=== PATIENT | female | born 1970 | race Caucasian/White ===

== ENCOUNTER 2018-02-25 21:31 | Emergency (ER) | payer OTHER, SELFPAY ==
--- NOTE | 2018-02-25 21:50 | RAD ---
SINGLE VIEW OF THE CHEST: 02/25/18 COMPARISON: 05/12/15 HISTORY: Right arm pain that radiates up to the jaw and chest pain. FINDINGS: Single view of the chest shows a normal sized cardiomediastinal silhouette. There is no evidence of c onsolidation, mass, or pleural effusion. The bones are unremarkable. IMPRESSION: No evidence of acute cardiopulmonary disease. POS: [facility]
[2018-02-25 22:04] LABS: #Basophils 0.1 thou/uL (0.0-0.2); #Eosinphils 1.4 thou/uL (0.0-0.7); #Lymphocytes 3.4 thou/uL (1.20-3.40); #Monocytes 0.8 thou/uL (0.11-0.59); #Neutrophils 4.3 thou/uL (1.40-6.50); %Eosinophils 14.3 % (0.0-10.0); %Lymphocytes 34.1 % (21.0-51.0); %Monocytes 7.5 % (0.0-10.0); %Neutrophils 43.1 % (42.0-75.0); Hemoglobin 12.8 g/dL (12.0-16.0); Mean Corpuscular Hemoglobin 30.3 pg (27.0-31.0); Mean Corpuscular Volume 89.2 fL (78.0-98.0); Mean Platelet Volume 7.5 fL (7.4-10.4); Platelet Count 319 thou/uL (130-400); RBC Distribution Width 12.5 % (11.5-14.5); Red Blood Cell (RBC) Count 4.23 mill/uL (4.20-5.40)
[2018-02-25 22:25] LABS: ALT (SGPT) 34 U/L (8-55); AST (SGOT) 26 U/L (5-34); Albumin 3.8 g/dL (3.5-5.0); Alkaline Phosphatase 128 U/L (40-150); Anion Gap 11 mmol/L (10-20); BUN (Urea Nitrogen) 10 mg/dL (7.0-18.7); Bilirubin, Total 0.2 mg/dL (0.2-1.2); Calc. Creatinine Clearance 0 mL/min (70-130); Carbon Dioxide 26 mmol/L (22-29); Chloride 101 mmol/L (98-107); Estimated GFR-MDRD 90; Globulin 3.5 g/dL (2.4-3.5); Glucose 204 mg/dL (70-105); Protein, Total 7.3 g/dL (6.0-8.3); Sodium 134 mmol/L (136-145)
[2018-02-25 22:29] LABS: CKMB 2.4 ng/mL (0-6.6); Troponin I Less than 0.010 ng/mL (< 0.028)
[2018-02-25] MEDS ORDERED: Nitroglycerin 2% Ointment 1 INCH/1 GM Packet ONE (22:42)
--- NOTE | 2018-02-25 23:39 | RAD ---
THREE VIEWS OF THE LEFT SHOULDER: 02/25/18 COMPARISON: None. HISTORY: Left shoulder pain. FINDINGS: Three views of the left shoulder shows no evidence of acute fracture or dislocation. No soft tissue s welling is seen. The visualized left thorax is unremarkable. IMPRESSION: Unremarkable exam. POS: [facility]
[2018-02-25 23:46] LABS: Troponin I Less than 0.010 ng/mL (< 0.028)
--- NOTE | 2018-03-06 11:57 | EKG ---
Test Reason : Blood Pressure : / mmHG Vent. Rate : 084 BPM Atrial Rate : 084 BPM P-R Int : 182 ms QRS Dur : 080 ms QT Int : 352 ms P-R-T Axes : 029 035 025 degrees QTc Int : 415 ms Normal sinus rhythm Possible Anterior infarct , age undetermined Abnormal ECG Confirmed by ZEFERINO MANZANO, ROMIE Young ([id number]), international editorial producer BOBBY SPARKS ([id number]) on 03/06/2018 11:57:23 AM Referred By: Confirmed By:ROMIE MCGARRY MD
== END 2018-02-26 00:17 | disposition home or self-care (01) ==
LOC: ERS 21:31
DX: M25.512 Pain in left shoulder (principal); E03.9 Hypothyroidism, unspecified; J44.9 Chronic obstructive pulmonary disease, unspecified; E11.9 Type 2 diabetes mellitus without complications; I10 Essential (primary) hypertension; F32.9 Major depressive disorder, single episode, unspecified; F17.210 Nicotine dependence, cigarettes, uncomplicated; Z79.899 Other long term (current) drug therapy; Z79.82 Long term (current) use of aspirin; Z79.84 Long term (current) use of oral hypoglycemic drugs
CPT/HCPCS: 36415; 71045; 80053; 82553; 83880; 84484; 85025; 85379; 93005

== ENCOUNTER 2018-09-29 15:43 | Emergency (ER) | payer SELFPAY ==
--- NOTE | 2018-09-29 16:13 | RAD ---
PORTABLE CHEST ONE VIEW: 09/29/2018 5:00 p.m. HISTORY: Chest pain. Dizziness. COMPARISON: 02/25/2018 FINDINGS: The heart size is normal. The lungs are expanded without focal areas of consolidation, pneumothorax, or pleural effusions. IMPRESSION: No radiographic evidence of acute cardiopulmonary process. POS: [facility]
[2018-09-29 16:16] LABS: #Basophils 0.1 thou/uL (0.0-0.2); #Eosinphils 0.5 thou/uL (0.0-0.7); #Lymphocytes 3.1 thou/uL (1.20-3.40); #Monocytes 0.7 thou/uL (0.11-0.59); #Neutrophils 3.2 thou/uL (1.40-6.50); %Basophils 1.3 % (0.0-1.0); %Eosinophils 6.5 % (0.0-10.0); %Lymphocytes 41.3 % (21.0-51.0); %Monocytes 8.6 % (0.0-10.0); %Neutrophils 42.3 % (42.0-75.0); Hemoglobin 12.9 g/dL (12.0-16.0); Mean Corpuscular HGB CONC 33.3 g/dL (32.0-36.0); Mean Corpuscular Hemoglobin 30.7 pg (27.0-31.0); Mean Corpuscular Volume 92.2 fL (78.0-98.0); Mean Platelet Volume 6.9 fL (7.4-10.4); Platelet Count 300 thou/uL (130-400); RBC Distribution Width 11.7 % (11.5-14.5); White Blood Cell (WBC) Count 7.6 thou/uL (4.8-10.8)
[2018-09-29 16:41] LABS: ALT (SGPT) 31 U/L (8-55); AST (SGOT) 23 U/L (5-34); Albumin 3.8 g/dL (3.5-5.0); Alkaline Phosphatase 111 U/L (40-150); Anion Gap 12 mmol/L (10-20); BUN (Urea Nitrogen) 14 mg/dL (7.0-18.7); Bilirubin, Total 0.2 mg/dL (0.2-1.2); Calc. Creatinine Clearance 0 mL/min (70-130); Calcium 9.3 mg/dL (7.8-10.44); Carbon Dioxide 28 mmol/L (22-29); Chloride 99 mmol/L (98-107); Estimated GFR-MDRD 76; Globulin 3.2 g/dL (2.4-3.5); Glucose 289 mg/dL (70-105); Lipase 36 U/L (8-78); Potassium 4.3 mmol/L (3.5-5.1); Sodium 135 mmol/L (136-145)
[2018-09-29] MEDS ORDERED: Mag-Al 1200 mg/1200 mg/30 ML UDCUP ONE (17:05)
[2018-09-29] MEDS ORDERED: Lidocaine Viscous Sol 2% 15 ml UD Cup ONE (17:05)
== END 2018-09-29 18:12 | disposition home or self-care (01) ==
LOC: ERS 15:43
DX: R10.13 Epigastric pain (principal); R11.2 Nausea with vomiting, unspecified; E03.9 Hypothyroidism, unspecified; J44.9 Chronic obstructive pulmonary disease, unspecified; I45.6 Pre-excitation syndrome; E11.9 Type 2 diabetes mellitus without complications; I10 Essential (primary) hypertension; F32.9 Major depressive disorder, single episode, unspecified; F17.210 Nicotine dependence, cigarettes, uncomplicated; Z79.899 Other long term (current) drug therapy; Z79.84 Long term (current) use of oral hypoglycemic drugs; Z79.82 Long term (current) use of aspirin; Z79.51 Long term (current) use of inhaled steroids
CPT/HCPCS: 36415; 71045; 80053; 83690; 84484; 85025; 93005

== ENCOUNTER 2019-02-12 11:24 | Emergency (ER) | payer SELFPAY ==
--- NOTE | 2019-02-12 12:07 | RAD ---
RIGHT FOOT 3 VIEWS: Date: 02/12/19 COMPARISON: None. HISTORY: Right foot pain. FINDINGS: There is enthesophyte formation at the origin of the plantar aponeurosis. There is mild degenerative change at the first metatarsophalangeal joint. There is no displaced fracture or evidence of dislocat ion seen. IMPRESSION: No acute osseous abnormality. POS: [facility]
== END 2019-02-12 13:08 | disposition home or self-care (01) ==
LOC: ERS 11:24
DX: S93.401A Sprain of unspecified ligament of right ankle, initial encounter (principal); E03.9 Hypothyroidism, unspecified; J44.9 Chronic obstructive pulmonary disease, unspecified; I49.9 Cardiac arrhythmia, unspecified; I45.6 Pre-excitation syndrome; I10 Essential (primary) hypertension; F32.9 Major depressive disorder, single episode, unspecified; F17.210 Nicotine dependence, cigarettes, uncomplicated; Z79.51 Long term (current) use of inhaled steroids; Z79.82 Long term (current) use of aspirin; Z79.84 Long term (current) use of oral hypoglycemic drugs; W23.0XXA Caught, crushed, jammed, or pinched between moving objects, initial encounter

== ENCOUNTER 2021-03-08 14:57 | Outpatient (CLI) | payer MEDICAID | END 2021-03-08 14:58 | disposition home or self-care (01) | LOC: BICRAD 14:57 | PROVIDERS: ATTEND Family Medicine | DX: R06.02 Shortness of breath (principal); J18.9 Pneumonia, unspecified organism | CPT/HCPCS: 71045 ==

== ENCOUNTER 2021-10-08 12:31 | Outpatient (CLI) | payer OTHER ==
[2021-10-08 13:42] LABS: #Basophils 0.1 10x3/uL (0.0-0.2); #Eosinphils 0.6 10x3/uL (0.0-0.5); %Basophils 0.7 % (0.0-2.0); %Eosinophils 6.5 % (0.0-6.0); %Monocytes 10.3 % (0.0-10.0); %Neutrophils 52.1 % (40.0-75.0); Hemoglobin 11.4 g/dL (12.0-15.5); Mean Corpuscular HGB CONC 32.3 g/dL (32.0-36.0); Mean Corpuscular Hemoglobin 29.2 pg (27.0-33.0); Mean Corpuscular Volume 90.5 fl (81.6-98.3); Mean Platelet Volume 10.1 fl (7.4-10.4); Platelet Count 269 10x3/uL (150-450); RBC Distribution Width 13.7 % (11.5-14.5); White Blood Cell (WBC) Count 9.6 10x3/uL (3.5-10.5)
[2021-10-08 13:55] LABS: ALT (SGPT) 54 U/L (8-55); AST (SGOT) 38 U/L (5-34); Albumin 3.8 g/dL (3.5-5.0); Alkaline Phosphatase 104 U/L (40-110); Anion Gap 12 mmol/L (10-20); BUN (Urea Nitrogen) 14 mg/dL (7.0-18.7); Bilirubin, Total 0.2 mg/dL (0.2-1.2); Calc. Creatinine Clearance 0 mL/min (70-130); Calcium 9.4 mg/dL (7.8-10.44); Carbon Dioxide 26 mmol/L (22-29); Chloride 103 mmol/L (98-107); Globulin 3.1 g/dL (2.4-3.5); Glucose 219 mg/dL (70-105); Potassium 4.9 mmol/L (3.5-5.1); Protein, Total 6.9 g/dL (6.0-8.3); Sodium 136 mmol/L (136-145)
[2021-10-09 00:24] LABS: SARS-CoV-2 PCR by NAA Not Detected (NotDetected)
== END 2021-10-08 12:32 | disposition home or self-care (01) ==
LOC: LABBT 12:31
PROVIDERS: ATTEND Internal Medicine Cardiovascular Disease
DX: Z01.812 Encounter for preprocedural laboratory examination (principal); Z20.822 Contact with and (suspected) exposure to COVID-19
CPT/HCPCS: 80053; 85025; U0003; U0005

== ENCOUNTER 2021-10-11 06:02 | Day surgery (SDC) | payer OTHER ==
[2021-10-09 11:31] VITALS: BMI 29.9
[2021-10-11] MEDS ORDERED: Lidocaine 1% (PF) 30 ML VIAL ONE (06:33)
[2021-10-11] MEDS ORDERED: Verapamil 5 MG/2 ML VIAL ONE (06:45)
[2021-10-11] MEDS ORDERED: Nitroglycerin 100MG/250ML BOT 250 ML ONE (06:45)
[2021-10-11] MEDS ORDERED: Heparin 10,000 UNITS/ 10 ML VIAL ONE (06:45)
[2021-10-11] MEDS ORDERED: Midazolam HCl 2 mg/2 ml Vial ONE (07:14)
[2021-10-11] MEDS ORDERED: Iopamidol 370 76% 100 ML VIAL ONE (13:58)
== END 2021-10-11 10:40 | disposition home or self-care (01) ==
LOC: CCL 06:02
PROVIDERS: ATTEND Internal Medicine Cardiovascular Disease
PROC: 4A023N7 Measurement of Cardiac Sampling and Pressure, Left Heart, Percutaneous Approach (ICD-10-PCS; principal; 2021-10-11)
PROC: B2111ZZ Fluoroscopy of Multiple Coronary Arteries using Low Osmolar Contrast (ICD-10-PCS; principal; 2021-10-11)
DX: R06.02 Shortness of breath (principal); R94.39 Abnormal result of other cardiovascular function study; I25.10 Atherosclerotic heart disease of native coronary artery without angina pectoris; E03.9 Hypothyroidism, unspecified; E11.9 Type 2 diabetes mellitus without complications; I10 Essential (primary) hypertension; E78.2 Mixed hyperlipidemia; J44.9 Chronic obstructive pulmonary disease, unspecified; F17.210 Nicotine dependence, cigarettes, uncomplicated; I45.6 Pre-excitation syndrome; Z79.4 Long term (current) use of insulin; Z79.82 Long term (current) use of aspirin; Z79.84 Long term (current) use of oral hypoglycemic drugs; Z79.890 Hormone replacement therapy; Z79.899 Other long term (current) drug therapy; Z88.5 Allergy status to narcotic agent
CPT/HCPCS: 36416; 93458; J1644; J2001; J2250; Q9967

== ENCOUNTER 2022-06-23 02:11 | Inpatient (IN) | payer OTHER ==
[2022-06-23] MEDS ORDERED: NOREPINEPHRINE 8 MG/250 ML-D5W 250 ML ONE ×2 (02:37→19:48)
[2022-06-23] MEDS ORDERED: methylPREDNISolone Sod Succ/PF 125 MG/2 ML VIAL ONE (02:37)
[2022-06-23 02:39] LABS: #Basophils 0.1 thou/uL (0.0-0.2); #Eosinphils 0.4 thou/uL (0.0-0.7); #Lymphocytes 5.4 thou/uL (1.20-3.40); #Monocytes 0.4 thou/uL (0.11-0.59); #Neutrophils 7.7 thou/uL (1.40-6.50); %Basophils 0.4 % (0.0-1.0); %Eosinophils 2.6 % (0.0-10.0); %Monocytes 2.8 % (0.0-10.0); %Neutrophils 55.1 % (42.0-75.0); Hemoglobin 15.5 g/dL (12.0-16.0); Mean Corpuscular HGB CONC 33.8 g/dL (32.0-36.0); Mean Corpuscular Hemoglobin 31.3 pg (27.0-31.0); Mean Corpuscular Volume 92.6 fl (78.0-98.0); Mean Platelet Volume 7.6 fL (7.4-10.4); Platelet Count 145 10x3/uL (130-400); RBC Distribution Width 11.8 % (11.5-14.5); Red Blood Cell (RBC) Count 4.96 mill/uL (4.20-5.40); White Blood Cell (WBC) Count 13.9 10x3/uL (4.8-10.8)
[2022-06-23 03:03] LABS: Albumin 4.1 g/dL (3.5-5.0); Anion Gap 17 mmol/L (10-20); BUN (Urea Nitrogen) 27 mg/dL (7.0-18.7); Bilirubin, Total 0.4 mg/dL (0.2-1.2); Calc. Creatinine Clearance 0 mL/min (70-130); Carbon Dioxide 23 mmol/L (22-29); Chloride 98 mmol/L (98-107); Estimated GFR 59; Glucose 236 mg/dL (70-105); Potassium 3.6 mmol/L (3.5-5.1); Protein, Total 7.9 g/dL (6.0-8.3); Sodium 134 mmol/L (136-145)
[2022-06-23 03:04] LABS: ALT (SGPT) 40 U/L (8-55); AST (SGOT) 37 U/L (5-34); Alkaline Phosphatase 115 U/L (40-110); Globulin 3.8 g/dL (2.4-3.5); Lipase 117 U/L (8-78)
[2022-06-23] MEDS ORDERED: Ondansetron PF 4 MG/2 ML Vial ONE (03:08)
[2022-06-23] MEDS ORDERED: Piperacillin/Tazobactam 3.375 GM VIAL ONE (03:08)
[2022-06-23] MEDS ORDERED: Fentanyl 100 MCG/2 ML VIAL ONE (03:49)
[2022-06-23 04:13] LABS: Bilirubin Negative (Negative); Blood, Urine Negative (Negative); Clarity Clear (Clear); Glucose, Urine (Dipstick) 30 mg/dL (Negative); Ketone, Urine Negative (Negative); Leukocyte Negative Leu/uL (Negative); Nitrite Negative (Negative); Protein, Urine (Dipstick) 70 mg/dL (Neg-Trace); RBC/HPF 0-3 HPF (0-3); Specific Gravity, Urine 1.018 (1.002-1.036); Squamous Epithelial 0-3 HPF (0-3); WBC/HPF 0-3 HPF (0-3); pH, Urine 6.5 (5.0-9.0)
[2022-06-23] MEDS ORDERED: LORazepam 2 MG/ML SYR.(CARPUJECT) ONE (05:01)
[2022-06-23 05:45] LABS: Lactic Acid 4.1 mmol/L (0.5-2.2)
[2022-06-23] MEDS ORDERED: Acetaminophen 325 MG TAB PO PRN (05:57)
[2022-06-23] MEDS ORDERED: Calcium Carbonate 500 MG ChewTAB PO PRN (05:57)
[2022-06-23] MEDS ORDERED: Senokot S 8.6-50 MG TAB PO PRN (05:57)
[2022-06-23] MEDS ORDERED: Dextrose 5% in Water 1,000 ML IV PRN (05:58)
[2022-06-23] MEDS ORDERED: Dextrose 50% Abboject 50 ML SYRINGE SLOW IVP PRN (05:58)
[2022-06-23] MEDS ORDERED: NOREPINEPHRINE 8 MG/250 ML-D5W 250 ML IVPB SCH (06:00)
[2022-06-23 07:25] LABS: Magnesium 2.3 mg/dL (1.6-2.6); Phosphorus 5.2 mg/dL (2.3-4.7)
[2022-06-23 07:52] LABS: SARS-CoV-2 NAA Rapid Test DETECTED (NotDetected)
[2022-06-23] MEDS ORDERED: Iopamidol-370 76% 500 ML 1 ML ONE (08:41)
[2022-06-23] MEDS: Sodium Chloride 0.9% 1,000 ML IV SCH ×3 (09:06→21:28)
[2022-06-23 09:45] LABS: Lactic Acid 1.4 mmol/L (0.5-2.2)
[2022-06-23] MEDS: Piperacillin/Tazobactam 3.375 GM in Sodium Chloride 0.9% 100 ML IVPB SCH ×2 (09:45→15:43)
[2022-06-23] MEDS: Buprenorphine 8mg/Naloxone 2mg per 1 FILM SL SCH ×3 (10:16→20:17)
[2022-06-23] MEDS: Famotidine 20 MG TAB PO SCH ×2 (10:17→20:11)
[2022-06-23] MEDS: Insulin Glargine 30 UNITS/0.3 ML VIAL SC SCH (10:17)
[2022-06-23] MEDS: Nicotine 14 MG PATCH TD SCH (10:17)
[2022-06-23] MEDS: Levothyroxine Sodium 100 MCG TAB PO SCH (10:17)
[2022-06-23] MEDS: Aspirin 325 mg Enteric Coated Tablet PO SCH (10:17)
[2022-06-23] MEDS: Ondansetron ODT 4 MG TAB PO PRN (10:45)
[2022-06-23] MEDS ORDERED: Loperamide HCl 2 MG CAP PO PRN (12:12)
[2022-06-23] MEDS: Acetaminophen 500 MG TAB PO PRN ×2 (12:29→20:11)
[2022-06-23] MEDS: HumaLOG 300 UNITS/3 ML VIAL SC PRN ×2 (12:30→15:44)
[2022-06-23] MEDS: Loperamide HCl 1 MG/7.5 ML UDCUP PO PRN ×2 (15:43→20:11)
[2022-06-23] MEDS: cloNIDine 0.2 MG TAB PO SCH ×2 (15:43→20:11)
[2022-06-23 16:04] LABS: Campy jejuni + coli by PCR Negative (Negative); STEC Shiga Toxin 1+2 Negative (Negative); Salmonella spp. by PCR Negative (Negative); Shigella spp + EIEC by PCR Negative (Negative)
[2022-06-23] MEDS ORDERED: Albuterol 200 PUFF (6.7GM INHALER) INH SCH (19:00)
[2022-06-24] MEDS: Piperacillin/Tazobactam 3.375 GM in Sodium Chloride 0.9% 100 ML IVPB SCH ×3 (00:06→15:48)
[2022-06-24] MEDS: Loperamide HCl 1 MG/7.5 ML UDCUP PO PRN (04:34)
[2022-06-24] MEDS: Acetaminophen 500 MG TAB PO PRN ×2 (04:34→21:09)
[2022-06-24 05:02] LABS: #Eosinphils 0.1 thou/uL (0.0-0.7); #Lymphocytes 1.3 thou/uL (1.20-3.40); #Monocytes 1.1 thou/uL (0.11-0.59); #Neutrophils 10.7 thou/uL (1.40-6.50); %Basophils 0.1 % (0.0-1.0); %Eosinophils 0.5 % (0.0-10.0); %Lymphocytes 9.6 % (21.0-51.0); %Monocytes 8.1 % (0.0-10.0); %Neutrophils 81.8 % (42.0-75.0); Hemoglobin 12.5 g/dL (12.0-16.0); Mean Corpuscular HGB CONC 32.9 g/dL (32.0-36.0); Mean Corpuscular Hemoglobin 31.3 pg (27.0-31.0); Mean Corpuscular Volume 95.1 fl (78.0-98.0); Mean Platelet Volume 7.2 fL (7.4-10.4); Platelet Count 221 10x3/uL (130-400); RBC Distribution Width 12.1 % (11.5-14.5); White Blood Cell (WBC) Count 13.1 10x3/uL (4.8-10.8)
[2022-06-24 05:28] LABS: ALT (SGPT) 21 U/L (8-55); AST (SGOT) 19 U/L (5-34); Alkaline Phosphatase 51 U/L (40-110); Anion Gap 7 mmol/L (10-20); BUN (Urea Nitrogen) 9 mg/dL (7.0-18.7); Bilirubin, Total 0.4 mg/dL (0.2-1.2); Calc. Creatinine Clearance 119 mL/min (70-130); Calcium 8.3 mg/dL (7.8-10.44); Carbon Dioxide 26 mmol/L (22-29); Chloride 104 mmol/L (98-107); Estimated GFR 100; Globulin 2.7 g/dL (2.4-3.5); Glucose 262 mg/dL (70-105); Lipase 17 U/L (8-78); Protein, Total 5.7 g/dL (6.0-8.3); Sodium 133 mmol/L (136-145)
[2022-06-24] MEDS: Nicotine 14 MG PATCH TD SCH (06:12)
[2022-06-24] MEDS: Levothyroxine Sodium 100 MCG TAB PO SCH (06:12)
[2022-06-24] MEDS: Ondansetron ODT 4 MG TAB PO PRN ×2 (06:12→15:47)
[2022-06-24] MEDS: HumaLOG 300 UNITS/3 ML VIAL SC PRN ×2 (06:13→13:16)
[2022-06-24] MEDS: Albuterol 200 PUFF (6.7GM INHALER) INH SCH ×2 (07:03→18:34)
[2022-06-24] MEDS ORDERED: FLU VACC QS2022-23(6MOS UP)/PF 60 MCG/0.5 ML SYRINGE IM ONE (09:00)
[2022-06-24] MEDS: Famotidine 20 MG TAB PO SCH ×2 (09:35→21:12)
[2022-06-24] MEDS: Aspirin 325 mg Enteric Coated Tablet PO SCH (09:36)
[2022-06-24] MEDS: cloNIDine 0.2 MG TAB PO SCH ×3 (09:36→21:11)
[2022-06-24] MEDS: Insulin Glargine 30 UNITS/0.3 ML VIAL SC SCH (09:36)
[2022-06-24] MEDS: Buprenorphine 8mg/Naloxone 2mg per 1 FILM SL SCH ×3 (09:54→21:24)
[2022-06-25] MEDS: Piperacillin/Tazobactam 3.375 GM in Sodium Chloride 0.9% 100 ML IVPB SCH ×3 (00:45→16:38)
[2022-06-25] MEDS: Levothyroxine Sodium 100 MCG TAB PO SCH (06:32)
[2022-06-25] MEDS: Ondansetron ODT 4 MG TAB PO PRN ×2 (06:36→16:47)
[2022-06-25] MEDS: Nicotine 14 MG PATCH TD SCH (06:36)
[2022-06-25] MEDS: Acetaminophen 500 MG TAB PO PRN ×2 (08:09→15:25)
[2022-06-25] MEDS: Aspirin 325 mg Enteric Coated Tablet PO SCH (08:10)
[2022-06-25] MEDS: Famotidine 20 MG TAB PO SCH ×2 (08:10→22:26)
[2022-06-25] MEDS: cloNIDine 0.2 MG TAB PO SCH ×3 (08:11→22:25)
[2022-06-25] MEDS: Insulin Glargine 30 UNITS/0.3 ML VIAL SC SCH (08:11)
[2022-06-25] MEDS: Loperamide HCl 1 MG/7.5 ML UDCUP PO PRN (09:33)
[2022-06-25] MEDS: Buprenorphine 8mg/Naloxone 2mg per 1 FILM SL SCH ×3 (09:34→22:25)
[2022-06-25] MEDS: HumaLOG 300 UNITS/3 ML VIAL SC PRN ×2 (12:42→16:45)
[2022-06-25] MEDS: Albuterol 200 PUFF (6.7GM INHALER) INH SCH ×2 (14:53→18:45)
[2022-06-25 15:18] LABS: #Basophils 0.1 thou/uL (0.0-0.2); #Eosinphils 0.2 thou/uL (0.0-0.7); #Lymphocytes 2.2 thou/uL (1.20-3.40); #Neutrophils 13.1 thou/uL (1.40-6.50); %Basophils 0.3 % (0.0-1.0); %Eosinophils 1.5 % (0.0-10.0); %Lymphocytes 13.1 % (21.0-51.0); %Monocytes 6.3 % (0.0-10.0); %Neutrophils 78.9 % (42.0-75.0); Hemoglobin 11.4 g/dL (12.0-16.0); Mean Corpuscular HGB CONC 32.5 g/dL (32.0-36.0); Mean Corpuscular Volume 95.4 fl (78.0-98.0); Mean Platelet Volume 7.2 fL (7.4-10.4); Platelet Count 215 10x3/uL (130-400); RBC Distribution Width 11.9 % (11.5-14.5); Red Blood Cell (RBC) Count 3.66 mill/uL (4.20-5.40); White Blood Cell (WBC) Count 16.6 10x3/uL (4.8-10.8)
[2022-06-25 15:38] LABS: Anion Gap 9 mmol/L (10-20); BUN (Urea Nitrogen) 7 mg/dL (7.0-18.7); Calc. Creatinine Clearance 125 mL/min (70-130); Calcium 8.3 mg/dL (7.8-10.44); Carbon Dioxide 27 mmol/L (22-29); Chloride 104 mmol/L (98-107); Estimated GFR 104; Glucose 172 mg/dL (70-105); Potassium 4.2 mmol/L (3.5-5.1); Sodium 136 mmol/L (136-145)
[2022-06-26] MEDS: Piperacillin/Tazobactam 3.375 GM in Sodium Chloride 0.9% 100 ML IVPB SCH ×2 (01:00→08:28)
[2022-06-26] MEDS: Levothyroxine Sodium 100 MCG TAB PO SCH (06:17)
[2022-06-26] MEDS: Nicotine 14 MG PATCH TD SCH (06:18)
[2022-06-26] MEDS: Albuterol 200 PUFF (6.7GM INHALER) INH SCH (06:40)
[2022-06-26 06:46] LABS: #Eosinphils 0.3 thou/uL (0.0-0.7); #Lymphocytes 1.7 thou/uL (1.20-3.40); #Monocytes 0.9 thou/uL (0.11-0.59); #Neutrophils 10.5 thou/uL (1.40-6.50); %Basophils 0.1 % (0.0-1.0); %Lymphocytes 12.9 % (21.0-51.0); %Monocytes 6.7 % (0.0-10.0); %Neutrophils 78.2 % (42.0-75.0); Hemoglobin 10.6 g/dL (12.0-16.0); Mean Corpuscular HGB CONC 33.2 g/dL (32.0-36.0); Mean Corpuscular Hemoglobin 31.5 pg (27.0-31.0); Mean Corpuscular Volume 94.8 fl (78.0-98.0); Mean Platelet Volume 7.4 fL (7.4-10.4); Platelet Count 198 10x3/uL (130-400); RBC Distribution Width 11.9 % (11.5-14.5); Red Blood Cell (RBC) Count 3.38 mill/uL (4.20-5.40); White Blood Cell (WBC) Count 13.4 10x3/uL (4.8-10.8)
[2022-06-26 07:08] LABS: ALT (SGPT) 17 U/L (8-55); AST (SGOT) 16 U/L (5-34); Albumin 2.9 g/dL (3.5-5.0); Alkaline Phosphatase 89 U/L (40-110); Anion Gap 8 mmol/L (10-20); BUN (Urea Nitrogen) 7 mg/dL (7.0-18.7); Bilirubin, Total 0.4 mg/dL (0.2-1.2); Calc. Creatinine Clearance 134 mL/min (70-130); Calcium 8.5 mg/dL (7.8-10.44); Carbon Dioxide 27 mmol/L (22-29); Chloride 105 mmol/L (98-107); Estimated GFR 107; Globulin 2.9 g/dL (2.4-3.5); Glucose 173 mg/dL (70-105); Potassium 3.9 mmol/L (3.5-5.1); Protein, Total 5.8 g/dL (6.0-8.3); Sodium 136 mmol/L (136-145)
[2022-06-26 08:13] VITALS: BP 157/93; TEMP 98.1
[2022-06-26] MEDS: Ondansetron ODT 4 MG TAB PO PRN (08:27)
[2022-06-26] MEDS: Buprenorphine 8mg/Naloxone 2mg per 1 FILM SL SCH (08:27)
[2022-06-26] MEDS: cloNIDine 0.2 MG TAB PO SCH (08:28)
[2022-06-26] MEDS: Famotidine 20 MG TAB PO SCH (08:28)
[2022-06-26] MEDS: Insulin Glargine 30 UNITS/0.3 ML VIAL SC SCH (08:28)
== END 2022-06-26 11:57 | disposition home or self-care (01) | DRG 871 ==
LOC: ERS 02:11 → ERHOLD 05:17 → CCU 08:20 → T4-A 06-24 08:35
PROVIDERS: ADMIT Internal Medicine; ATTEND Internal Medicine
PROC: 3E033XZ Introduction of Vasopressor into Peripheral Vein, Percutaneous Approach (ICD-10-PCS; principal; 2022-06-23)
PROC: 8E0ZXY6 Isolation (ICD-10-PCS; 2022-06-23)
PROC: 3E03329 Introduction of Other Anti-infective into Peripheral Vein, Percutaneous Approach (ICD-10-PCS; 2022-06-23)
DX: A41.89 Other specified sepsis (principal); U07.1 COVID-19; R57.1 Hypovolemic shock; N17.9 Acute kidney failure, unspecified; E87.20 Acidosis, unspecified; K62.5 Hemorrhage of anus and rectum; R65.20 Severe sepsis without septic shock; A05.9 Bacterial foodborne intoxication, unspecified; Z23 Encounter for immunization; G89.4 Chronic pain syndrome; J44.9 Chronic obstructive pulmonary disease, unspecified; E11.9 Type 2 diabetes mellitus without complications; E03.9 Hypothyroidism, unspecified; I10 Essential (primary) hypertension; E78.5 Hyperlipidemia, unspecified; F17.210 Nicotine dependence, cigarettes, uncomplicated; K52.29 Other allergic and dietetic gastroenteritis and colitis; Z79.4 Long term (current) use of insulin; Z88.5 Allergy status to narcotic agent; Z88.8 Allergy status to other drugs, medicaments and biological substances; Z79.899 Other long term (current) drug therapy; Z79.82 Long term (current) use of aspirin; Z79.890 Hormone replacement therapy; Z79.84 Long term (current) use of oral hypoglycemic drugs; Z90.710 Acquired absence of both cervix and uterus
CPT/HCPCS: 36415; 36416; 36556; 51701; 71045; 74177; 80048; 80053; 81003; 81015; 83605; 83630; 83690; 83735; 83880; 84100; 84443; 84484; 85025; 87040; 87324; 87328; 87329; 87449; 87505; 90471; 90686; 93005; 96365; 96366; 96375; G0008; J1650; J1815; J2060; J2405; J2543; J2930; J3010; J3490; J7050; Q0162; Q9967; U0002

== ENCOUNTER 2022-07-03 16:15 | Emergency (ER) | payer OTHER ==
[2022-07-03 17:20] LABS: #Basophils 0.1 thou/uL (0.0-0.2); #Eosinphils 0.4 thou/uL (0.0-0.7); #Lymphocytes 2.7 thou/uL (1.20-3.40); #Monocytes 0.8 thou/uL (0.11-0.59); #Neutrophils 5.3 thou/uL (1.40-6.50); %Basophils 0.7 % (0.0-1.0); %Eosinophils 4.4 % (0.0-10.0); %Monocytes 8.4 % (0.0-10.0); %Neutrophils 57.5 % (42.0-75.0); Hemoglobin 10.8 g/dL (12.0-16.0); Mean Corpuscular HGB CONC 33.6 g/dL (32.0-36.0); Mean Corpuscular Volume 95.1 fl (78.0-98.0); Mean Platelet Volume 6.6 fL (7.4-10.4); Platelet Count 422 10x3/uL (130-400); Red Blood Cell (RBC) Count 3.37 mill/uL (4.20-5.40); White Blood Cell (WBC) Count 9.2 10x3/uL (4.8-10.8)
[2022-07-03 17:41] LABS: ALT (SGPT) 17 U/L (8-55); AST (SGOT) 18 U/L (5-34); Albumin 3.4 g/dL (3.5-5.0); Alkaline Phosphatase 121 U/L (40-110); Anion Gap 13 mmol/L (10-20); BUN (Urea Nitrogen) 8 mg/dL (7.0-18.7); Bilirubin, Total 0.2 mg/dL (0.2-1.2); Calc. Creatinine Clearance 0 mL/min (70-130); Calcium 9.3 mg/dL (7.8-10.44); Carbon Dioxide 28 mmol/L (22-29); Chloride 98 mmol/L (98-107); Estimated GFR 94; Globulin 3.3 g/dL (2.4-3.5); Glucose 154 mg/dL (70-105); Protein, Total 6.7 g/dL (6.0-8.3); Sodium 135 mmol/L (136-145)
== END 2022-07-03 18:45 | disposition home or self-care (01) ==
LOC: ERS 16:15
DX: R60.0 Localized edema (principal); E03.9 Hypothyroidism, unspecified; J44.9 Chronic obstructive pulmonary disease, unspecified; E11.9 Type 2 diabetes mellitus without complications; I10 Essential (primary) hypertension; F17.210 Nicotine dependence, cigarettes, uncomplicated; Z79.84 Long term (current) use of oral hypoglycemic drugs; Z79.899 Other long term (current) drug therapy
CPT/HCPCS: 36415; 71045; 80053; 83880; 84484; 85025; 85379; 93005; 93970

== ENCOUNTER 2023-08-25 12:02 | Outpatient (CLI) | payer OTHER | END 2023-08-25 12:03 | disposition home or self-care (01) | LOC: BICMAMMO 12:02 | PROVIDERS: ATTEND Family Medicine | DX: Z12.31 Encounter for screening mammogram for malignant neoplasm of breast (principal); J44.9 Chronic obstructive pulmonary disease, unspecified; D64.9 Anemia, unspecified; R53.83 Other fatigue; Z80.3 Family history of malignant neoplasm of breast | CPT/HCPCS: 71046; 74018; 77067 ==